=== PATIENT | male | born 1985 | race Caucasian/White ===

== ENCOUNTER 2024-11-10 07:51 | Day surgery (SDC) | payer BC ==
[2024-11-10] MEDS: Lactated Ringers 1,000 ML IV SCH (08:20)
[2024-11-10] MEDS ORDERED: propofoL 500 MG/50 ML 50 ML ONE (09:09)
[2024-11-10] MEDS ORDERED: Lidocaine 2% 5 ML SDV ONE (09:09)
[2024-11-10] MEDS ORDERED: Propofol 200 MG/20 ML SDV ONE (10:03)
== END 2024-11-10 11:12 | disposition home or self-care (01) ==
LOC: MW.SDS 07:51
PROVIDERS: ATTEND Surgery
DX: K29.50 Unspecified chronic gastritis without bleeding (principal); B96.81 Helicobacter pylori [H. pylori] as the cause of diseases classified elsewhere; K21.00 Gastro-esophageal reflux disease with esophagitis, without bleeding; K44.9 Diaphragmatic hernia without obstruction or gangrene; K64.4 Residual hemorrhoidal skin tags; K64.8 Other hemorrhoids; R19.5 Other fecal abnormalities; E66.9 Obesity, unspecified; F17.210 Nicotine dependence, cigarettes, uncomplicated; Z68.32 Body mass index [BMI] 32.0-32.9, adult; Z79.899 Other long term (current) drug therapy
CPT/HCPCS: 43239; 45380; J2003; J2704; J7120; 00813